=== PATIENT | male | born 1975 | race Caucasian/White ===

== ENCOUNTER 2018-09-27 10:06 | Emergency (ER) | payer MEDICARE, MEDICAID ==
[~2018-09-27] VITALS: Ht 180.3 cm; Wt 99.8 kg
[2018-09-27 10:08] VITALS: BP 128/68
--- NOTE | 2018-09-27 10:08 | NUR ---
ED Nurse Note: Pt brought in by ambulance from home due to tonic clonic seizure x 20 seconds. Unknown head injury. Pt c/o headache and slight nausea. Pt unable to remember what happened. AAO x2 , follows commands with no respiratory distress. Sinus tach on junior manufacturing engineer.
[2018-09-27] MEDS ORDERED: Acetaminophen 500mg (ES) tab ORAL ONE (10:15)
[2018-09-27] MEDS ORDERED: LORazepam Inj 2mg/ml 1ml IV ONE (10:15)
[2018-09-27] MEDS ORDERED: GABAPENTIN800 MG ORAL (10:21)
[2018-09-27] MEDS ORDERED: TIZANIDINE HCL4 MG ORAL (10:21)
[2018-09-27] MEDS ORDERED: BUPRENORPHIN-N1 EACH SL (10:21)
--- NOTE | 2018-09-27 10:29 | NUR ---
ED Nurse Note: Collected blood and sent to lab.
--- NOTE | 2018-09-27 10:44 | NUR ---
ED Nurse Note: Urine sent.
[2018-09-27 10:57] LABS: BASOPHILS % (AUTO) 1.4 % (0.0-2.0); EOSINOPHILS % (AUTO) 2.1 % (0.0-3.0); HEMATOCRIT 44.1 % (42.0-52.0); HEMOGLOBIN 14.9 G/DL (14.2-18.0); LYMPHOCYTES % (AUTO) 37.6 % (20.0-45.0); MEAN CORPUSCULAR VOLUME 91 FL (80-99); MONOCYTES % (AUTO) 9.4 % (1.0-10.0); NEUTROPHILS % (AUTO) 49.5 % (45.0-75.0); PLATELET COUNT 431 K/UL (150-450); RED BLOOD COUNT 4.85 M/UL (4.70-6.10); WHITE BLOOD COUNT 12.9 K/UL (4.8-10.8)
[2018-09-27 11:03] LABS: APPEARANCE,URINE CLEAR; BILIRUBIN, URINE NEGATIVE (NEGATIVE); COLOR,URINE YELLOW; GLUCOSE, URINE (UA) NEGATIVE (NEGATIVE); KETONES,URINE 1+ (NEGATIVE); LEUKOCYTE ESTERASE ,URINE 1+ (NEGATIVE); NITRITE,URINE NEGATIVE (NEGATIVE); PH,URINE 5 (4.5-8.0); PROTEIN,URINE 2+ (NEGATIVE); UROBILINOGEN,URINE NORMAL MG/DL (0.0-1.0)
[2018-09-27 11:04] LABS: ANION GAP 18 mmol/L (5-15); BLOOD UREA NITROGEN 11 mg/dL (7-18); CALCIUM 9.4 MG/DL (8.5-10.1); CARBON DIOXIDE 19 MMOL/L (21-32); CHLORIDE 104 MMOL/L (98-107); CREATININE 1.6 MG/DL (0.55-1.30); POTASSIUM 3.6 MMOL/L (3.5-5.1); SODIUM 141 MMOL/L (136-145)
[2018-09-27 11:12] LABS: ALANINE AMINOTRANSFERASE 10 U/L (12-78); ALBUMIN 3.9 G/DL (3.4-5.0); ALKALINE PHOSPHATASE 80 U/L (46-116); ASPARTATE AMINO TRANSFERASE 12 U/L (15-37); BILIRUBIN,TOTAL 0.3 MG/DL (0.2-1.0)
[2018-09-27 12:18] VITALS: BP 121/78
[2018-09-27] MEDS ORDERED: Depakote 500mg tab ORAL ONE (12:45)
[2018-09-27] MEDS ORDERED: DEPAKOTE500 MG PO (13:04)
[2018-09-27] MEDS ORDERED: Ketorolac 30mg Inj IV ONE (13:15)
[2018-09-27] MEDS ORDERED: IBUPROFEN600 MG ORAL (13:16)
[2018-09-27 13:30] VITALS: BP 112/67
--- NOTE | 2018-09-27 13:30 | NUR ---
ED Nurse Note: Pt is cleared by ER MD for discharge. DC instructions/prescription was given and explained to pt and verbalized understanding of teachings. All medical devices such as ID band/IV removed. Pt is AAO x4, ambulatory and left with all personal belongings.
--- NOTE | 2018-09-29 19:02 | Emergency Room Report ---
History of Present Illness General Chief Complaint: Seizure Source: Patient Present Illness HPI Patient is a 43-year-old male presented after seizure. Patient had prior history of seizures. Reports taking Depakote. He had prior history of benzodiazepine use previously been prescribed Klonopin. Patient denies any fever. He reports having a prior history of chronic back pain and states that he had a headache as previously after his seizures. He denies any severe headache or current nausea. Patient was noted to have been taking Subutex Allergies: Coded Allergies: No Known Allergies (Unverified , 09/27/18) Patient History Past Medical History: see triage record Reviewed Nursing Documentation: PMH: Agreed; PSxH: Agreed Nursing Documentation-PMH Past Medical History: No History, Except For Hx Seizures: Yes Review of Systems All Other Systems: negative except mentioned in HPI Physical Exam Vital Signs Date Time Temp Pulse Resp B/P (MAP) Pulse Ox O2 Delivery O2 Flow Rate FiO2 09/27/18 10:02 99.3 125 18 128/68 95 Room Air Sp02 EP Interpretation: reviewed, normal General Appearance: normal inspection, well appearing, no apparent distress, alert, GCS 15, obese Head: atraumatic ENT: normal ENT inspection, hearing grossly normal, normal voice Neck: normal inspection, full range of motion, supple, no bony tend Respiratory: normal inspection, lungs clear, normal breath sounds, no respiratory distress, no retraction, no wheezing Cardiovascular #1: regular rate, rhythm, no edema Gastrointestinal: normal inspection, normal bowel sounds, non tender, soft, no guarding, no hernia Genitourinary: no CVA tenderness Musculoskeletal: normal inspection, back normal, normal range of motion Neurologic: normal inspection, alert, oriented x3, responsive, route vending machine servicer III-XII nml as tested, speech normal Psychiatric: normal inspection, judgement/insight normal, mood/affect normal Skin: normal inspection, normal color, no rash Medical Decision Making Diagnostic Impression: Primary Impression: Epileptic seizure, generalized ER Course Patient presented for seizure.Differential diagnosis included alcohol withdrawal, subtherapeutic anticonvulsant, hyponatremia, patient presented procedure. Cysticercosis, electrolyte abnormality, mass lesion, or intracranial hemorrhage. Because of complexity of patient's case laboratory testing and imaging studies were ordered.Patient's laboratory testing was notable for a subtherapeutic valproic acid level. Patient was given IV Ativan as well as Depakote p.o. Patient was noted to have adequate mental status. He was noted to have chronic back pain and states that this feels like his similar back pain in the past. Patient was noted to be ambulatory after a seizure. He was advised to follow-up with his primary care physician and to make sure he is taking his anticonvulsants. The patient is advised to follow up with primary care doctor in 1-2 days. Patient is advised to return if any worsening condition or if any changes in status that are concerning. This report is dictated with [employer] custodial worker software which may occasionally lead to discrepancies related to use of this software. Labs Test 09/27/18 10:07 09/27/18 10:30 White Blood Count 12.9 K/UL (4.8-10.8) Red Blood Count 4.85 M/UL (4.70-6.10) Hemoglobin 14.9 G/DL (14.2-18.0) Hematocrit 44.1 % (42.0-52.0) Mean Corpuscular Volume 91 FL (80-99) Mean Corpuscular Hemoglobin 30.8 PG (27.0-31.0) Mean Corpuscular Hemoglobin Concent 33.9 G/DL (32.0-36.0) Red Cell Distribution Width 11.0 % (11.6-14.8) Platelet Count 431 K/UL (150-450) Mean Platelet Volume 6.5 FL (6.5-10.1) Neutrophils (%) (Auto) 49.5 % (45.0-75.0) Lymphocytes (%) (Auto) 37.6 % (20.0-45.0) Monocytes (%) (Auto) 9.4 % (1.0-10.0) Eosinophils (%) (Auto) 2.1 % (0.0-3.0) Basophils (%) (Auto) 1.4 % (0.0-2.0) Sodium Level 141 MMOL/L (136-145) Potassium Level 3.6 MMOL/L (3.5-5.1) Chloride Level 104 MMOL/L (98-107) Carbon Dioxide Level 19 MMOL/L (21-32) Anion Gap 18 mmol/L (5-15) Blood Urea Nitrogen 11 mg/dL (7-18) Creatinine 1.6 MG/DL (0.55-1.30) Estimat Glomerular Filtration Rate 47.6 mL/min (>60) Glucose Level 159 MG/DL (74-106) Calcium Level 9.4 MG/DL (8.5-10.1) Total Bilirubin 0.3 MG/DL (0.2-1.0) Aspartate Amino Transf (AST/SGOT) 12 U/L (15-37) Alanine Aminotransferase (ALT/SGPT) 10 U/L (12-78) Alkaline Phosphatase 80 U/L (46-116) Total Protein 7.7 G/DL (6.4-8.2) Albumin 3.9 G/DL (3.4-5.0) Globulin 3.8 g/dL Albumin/Globulin Ratio 1.0 (1.0-2.7) Valproic Acid (Depakene) Level 17 MCG/ML (50-100) Urine Color Yellow Urine Appearance Clear Urine pH 5 (4.5-8.0) Urine Specific [place] 1.025 (1.005-1.035) Urine Protein 2+ (NEGATIVE) Urine Glucose (UA) Negative (NEGATIVE) Urine Ketones 1+ (NEGATIVE) Urine Blood Negative (NEGATIVE) Urine Nitrite Negative (NEGATIVE) Urine Bilirubin Negative (NEGATIVE) Urine Urobilinogen Normal MG/DL (0.0-1.0) Urine Leukocyte Esterase 1+ (NEGATIVE) Urine RBC 0-2 /HPF (0 - 0) Urine WBC 2-4 /HPF (0 - 0) Urine Squamous Epithelial Cells Occasional /LPF Urine Bacteria Occasional /HPF (NONE) Urine Mucus Moderate /LPF (NONE/OCC) Urine Opiates Screen Negative (NEGATIVE) Urine Barbiturates Screen Positive (NEGATIVE) Phencyclidine (PCP) Screen Negative (NEGATIVE) Urine Amphetamines Screen Negative (NEGATIVE) Urine Benzodiazepines Screen Negative (NEGATIVE) Urine Cocaine Screen Negative (NEGATIVE) Urine Marijuana (THC) Screen Negative (NEGATIVE) EKG Diagnostic Results Rate: normal Rhythm: NSR ST Segments: no acute changes Last Vital Signs Date Time Temp Pulse Resp B/P (MAP) Pulse Ox O2 Delivery O2 Flow Rate FiO2 09/27/18 13:30 98.1 88 16 112/67 100 Room Air Status: improved Disposition: HOME, SELF-CARE Condition: Stable Scripts Ibuprofen* (MOTRIN*) 600 Mg Tablet 600 MG ORAL Q8H PRN for For Pain, #30 TAB 0 Refills Prov: James Marte MD 09/27/18 Divalproex Sodium (Depakote) 500 Mg Tablet. 500 MG PO BID, #20 TAB Prov: James Marte MD 09/27/18 Patient Instructions: Seizure, Adult James Marte MD Sep 29, 2018 19:02
== END 2018-09-27 13:30 | disposition home or self-care (01) ==
LOC: EDBD 10:06 → EMR 10:52
DX: G40.409 Other generalized epilepsy and epileptic syndromes, not intractable, without status epilepticus (principal)
CPT/HCPCS: 36415; 80053; 80164; 80307; 81003; 82962; 85025; 93005; 96361; 96374; 96375; 99284; J1885

== ENCOUNTER 2018-09-27 15:19 | Emergency (ER) | payer MEDICARE, MEDICAID ==
[~2018-09-27] VITALS: Ht 180.3 cm; Wt 108.9 kg
[~2018-09-27 15:19] MED LIST: BUPRENORPHIN-N1 EACH SL; DEPAKOTE500 MG PO; GABAPENTIN800 MG ORAL; IBUPROFEN600 MG ORAL; TIZANIDINE HCL4 MG ORAL
--- NOTE | 2018-09-27 15:54 | NUR ---
ED Nurse Note: pt walked in c/o can't remember where I live, pt states he was here this morning and was discharged from ER s/p seizure and took the uber home but unable to recall where he lives and came back to ER. Per pt statement, he did not have seizure after leaving hospital. pt AA&ox3, gcs=15, skin warm and dry, resp even and unlabored on RA, -n/v/d, ambulates w/steady gait.
--- NOTE | 2018-09-27 17:00 | NUR ---
ED Nurse Note: verified w/ pt and received verbal consent, attempted calling pt's family and exwife and friend, per ex statement, nobody unable to pickler helper pt in local. Will try calling pt's roommate again, roommate doesn't pickler helper the phone.
[2018-09-27 17:16] VITALS: BP_SYST 126; BP_SYST 128; BP_DIAS 85; BP_DIAS 87
--- NOTE | 2018-09-27 17:53 | Emergency Room Report ---
History of Present Illness General Chief Complaint: General Complaint Source: Patient Present Illness HPI 43-year-old male patient presents the ER complaining of confusion. Patient was previously seen here earlier in the day status post seizure, was discharged home. States that on the overdrive home to his address that he provided he was not able to identify his house so he had over bring him back to the ER where he checked in. Denies seizure at the time. Denies fever, chest pain, shortness of breath. Denies head trauma. Allergies: Coded Allergies: No Known Allergies (Unverified , 09/27/18) Patient History Past Medical History: see triage record Reviewed Nursing Documentation: PMH: Agreed; PSxH: Agreed Nursing Documentation-PMH Past Medical History: No History, Except For Hx Seizures: Yes Review of Systems All Other Systems: negative except mentioned in HPI Physical Exam Vital Signs Date Time Temp Pulse Resp B/P (MAP) Pulse Ox O2 Delivery O2 Flow Rate FiO2 09/27/18 15:38 98.8 86 18 126/85 98 Room Air Sp02 EP Interpretation: reviewed, normal General Appearance: well appearing, no apparent distress, alert, GCS 15, non- toxic Head: normocephalic, atraumatic Eyes: bilateral eye normal inspection, bilateral eye PERRL ENT: hearing grossly normal, normal pharynx, no angioedema, normal voice, uvula midline, moist mucus membranes Neck: full range of motion, no meningismus, no bony tend Respiratory: lungs clear, normal breath sounds, no rhonchi, no respiratory distress, no accessory muscle use, no wheezing, speaking full sentences Cardiovascular #1: regular rate, rhythm, no edema Musculoskeletal: back normal, digits/nails normal, gait/station normal, normal range of motion, non-tender Neurologic: alert, oriented x3, responsive, foxing painter III-XII nml as tested, motor strength/tone normal, sensory intact, cerebellar normal, normal gait, speech normal Psychiatric: mood/affect normal Skin: no rash Medical Decision Making PA Attestation Dr. Vargas is my supervising Physician whom patient management has been discussed with. Diagnostic Impression: Primary Impression: Confusion after a seizure ER Course Pt. presents to the ED c/o "I do not know where I live". Ddx considered but are not limited to confusion, seizure, malingering. Vital signs: are WNL, pt. is afebrile ER COURSE: Physical exam benign. No focal neuro deficits, cranial nerves intact as tested. Patient previously seen here, did not order repeat labs. CT head negative for acute disease. discuss results with the patient. Provided patient with copy of results. Instructed patient to followup with PCP and discuss results of report with patient, discuss need for further treatment and referral. Attempted to contact ex- and friends to come and pick patient up, left voicemails, no reply. Patient resting comfortably in no acute distress, nontoxic appearing. Patient watching videos on his cell phone. Patient alert and oriented, in no acute distress, nontoxic-appearing. Will discharge patient home with instructions to [facility]. Patient requesting cigarette. ER precautions given. DISCHARGE: At this time pt is stable for d/c to home. Patient is resting comfortably, in no acute distress, nontoxic appearing, talking without difficulty. Patient to take medications as instructed Will provide with patient care instructions and any necessary prescriptions. Care plan and follow-up instructions provided. Patient instructed to follow-up with primary care provider in 3 - 5 days. Patient questions asked and answered. Patient reports understanding and agreement to treatment plan. ER precautions given. Patient instructed to return to ER immediately for any new or worsening of symptoms including but not limited to increasing SOB, persistent fever, chest pain, intractable vomiting. - Please note that this Emergency Department Report was dictated using [employer] plaster technology software, occasionally this can lead to erroneous entry secondary to interpretation by the dictation equipment. CT/MRI/US Diagnostic Results CT/MRI/US Diagnostic Results : Imaging Test Ordered: CT head Impression No acute intracranial hemorrhage, extra-axial fluid collection, edema, mass effect, or grossly evident ischemic infarct. The paranasal sinuses and mastoid air cells are clear. No fracture. Last Vital Signs Date Time Temp Pulse Resp B/P (MAP) Pulse Ox O2 Delivery O2 Flow Rate FiO2 09/27/18 17:16 98.8 82 18 128/87 98 Room Air Status: improved Disposition: HOME, SELF-CARE Condition: Stable Patient Instructions: Confusion, Seizure, Adult Additional Instructions: Followup with primary care provider in 3 -5 days. Follow-up with neurologist. Take medications as directed. Patient questions asked and answered. ER precautions given, patient instructed to return to ER immediately for any new or worsening of symptoms. Miguel Vasquez Sep 27, 2018 17:53
[2018-09-27 21:00] VITALS: BP 134/81
--- NOTE | 2018-09-27 21:12 | NUR ---
ED Nurse Note: pt provided with taxi voucher, pt states he cannot remember his iphone password. pt states he will be going back home and friend lizette will be there.
--- NOTE | 2018-09-27 21:12 | NUR ---
ED Nurse Note: pt cleared to be d/c per ER provider, pt discharge and aftercare instruction provided w/ prescription, pt education done via discussion and handout, pt advised to follow up with pcp or return to ed if sx worsen or new sx develop, pt verbalized understanding and agrees with plan. pt left w/ all belongings. vss. ambulatory w/ steady gait. resp even and unlabored on RA.
--- NOTE | 2018-09-27 21:15 | NUR ---
ED Nurse Note: pt ambulatory w/ steady gait, AA&ox4, gcs=15, airway intact, resp even and unlabored, taxi came and pt went home, verified w/ Janki pt's ex ; ex stated the current address is where the pt resides, pt states that he lives with his roommate Junaid and junaid will be home back from work. pt left w/ all belongings.
--- NOTE | 2018-09-28 09:28 | Diagnostic Imaging Report ---
Indication: Headache, dizziness, seizures Technique: Continuous helical CT scanning of the head was performed without intravenous contrast material. Axial and coronal 5 mm sections were generated. Radiation dose was minimized using automated exposure control Dose: Total Dose Length Product - DLP 1590.[address] Dose Index - CTDIvol(s) 70.38 mGy. Comparison: none Findings: The ventricular system is normal in size and configuration. There is no shift of midline structures. No abnormal extra-axial fluid collections are noted. There is no evidence of intracerebral bleeding. No other abnormal high or low density areas are noted within the brain. Normal montalvo-white differentiation. Intact calvarium. Visualized orbits and sinuses are unremarkable. Impression: Normal CT scan of the head without contrast material. This agrees with the preliminary interpretation provided overnight by [facility]. The CT scanner at [facility] is accredited by the [employer] [place] [employer] and the scans are performed using protocols designed to limit radiation exposure to as low as reasonably achievable to attain images of sufficient resolution adequate for diagnostic evaluation.
== END 2018-09-27 21:12 | disposition home or self-care (01) ==
LOC: EMR 15:56
DX: R41.0 Disorientation, unspecified (principal); G40.909 Epilepsy, unspecified, not intractable, without status epilepticus
CPT/HCPCS: 70450; 99284